=== PATIENT | female | born 1955 | race Two or more races ===

== ENCOUNTER 2022-05-27 06:56 | Day surgery (SDC) | payer OTHER | END 2022-05-27 12:15 | disposition home or self-care (01) | LOC: AMB-ENDOS 06:56 | PROVIDERS: ATTEND Surgery | DX: D12.5 Benign neoplasm of sigmoid colon (principal); K57.90 Diverticulosis of intestine, part unspecified, without perforation or abscess without bleeding; R19.4 Change in bowel habit; Z20.822 Contact with and (suspected) exposure to COVID-19 ==